=== PATIENT | male | born 1960 | race Caucasian/White ===

== ENCOUNTER 2016-11-05 18:53 | Emergency (ER) | payer MEDICARE ==
[~2016-11-05] VITALS: Ht 165.1 cm; Wt 73.4 kg
[~2016-11-05 18:53] MED LIST: CEPH-460 PO; METH40TA PO
[2016-11-05 18:58] VITALS: BP 145/90; PULSE 112; RESP 18; TEMP 99.7; O2SAT 100
[2016-11-05] MEDS ORDERED: METH40TA PO (19:14)
[2016-11-05] MEDS ORDERED: ADDE30TA PO (19:14)
[2016-11-05 19:15] VITALS: BP 145/84; PULSE 107; RESP 18; TEMP 98.7; O2SAT 98
[2016-11-05] MEDS ORDERED: SODIUM CHLOR 0.9% 1000 ML INJ 1,000 ML IV ONE ×2 (19:27)
[2016-11-05] MEDS ORDERED: SODIUM CHLOR 0.9% 1000 ML INJ 400 ML IV ONE (19:27)
[2016-11-05] MEDS ORDERED: ONDANSETRON HCL 4 MG/2 ML VIAL IV ONE (19:30)
--- NOTE | 2016-11-05 19:42 | PD ---
HPI . Cold and flu symptoms Chief Complaint: Cold / Flu Symptoms Time Seen by Provider: 19:11 Travel History International Travel<30 days: No Contact w/Intl Traveler<30days: No Traveled to known affect area: No History of Present Illness HPI The patient presents with multiple complaints. But it seems that his main issue is cold and flu-type symptoms. He reports the onset of symptoms 11 days ago. He reports myalgias, chills, shortness of breath, rhinorrhea, cough, diarrhea, dry heaves and urgency, dribbling and foul odor of his urine. He reports no appetite. He states that he has not eaten in 11 days. He states that he has insomnia. He goes on to say that he suffers from medicine his fingers and his feet. He states that he has mesh in his abdomen which was not placed appropriately. He states that he has a skin rash. PFSH Past Medical History Hx Anticoagulant Therapy: Yes (in the pst) ADHD: Yes Anxiety: Yes Cancer: No Cardiovascular Problems: No Chemotherapy: No Cerebrovascular Accident: No Diabetes: Yes Patient Takes Glucophage: No Diminished Hearing: No Deep Vein Thrombosis: Yes (RIGHT LEG, ) Genitourinary: No Immune Disorder: No Implanted Vascular Access Dvce: No Musculoskeletal: No Neurologic: Yes Psychiatric: Yes Reproductive: No Respiratory: No Immunizations Current: No (unknown) Past Surgical History Abdominal Surgery: Yes (gallbladder removed, "mesh insertion" "liver rewired into three pieces") Appendectomy: Yes Cholecystectomy: Yes Oral Surgery: Yes (teeth extraction) Other Surgery: Yes (RECTUS ABD MUSCLE REPAIR; SCREW REMOVED FROM LIVER) Social History Alcohol Use: No Tobacco Use: Yes (1PPD) Substance Use: No ("WAS ON MORPHINE/OXYCONTIN FOR MANY YEARS AFTER R ANKLE REPAIR") Allergies-Medications (Allergen,Severity, Reaction): Coded Allergies: Aspirin (Verified Allergy, Severe, Rash, 11/05/16) Tramadol (Verified Allergy, Severe, Rash, 11/05/16) Reported Meds & Prescriptions Reported Meds & Active Scripts Active Reported Adderall (Amphetamine-Dextroamphetamine) 30 Mg Tab 30 Mg PO BID Avoid late evening doses. Space doses at least 4 to 6 hours if more than once/day dosing. Review of Systems Except as stated in HPI: all other systems reviewed are Neg General / Constitutional: Positive: Fever, Chills HENT: Positive: Rhinorrhea Respiratory: Positive: Cough, Shortness of Breath Gastrointestinal: Positive: Nausea, Diarrhea, Loss of Appetite Genitourinary: Positive: Urgency, Dribbling Neurologic: Positive: Paresthesia Physical Exam Narrative GENERAL: This is a thin man who does not appear to be in any acute distress. SKIN: Warm and dry. He has some scattered scabbed lesions on his upper back and his right zuniga. HEAD: Atraumatic. Normocephalic. EYES: Pupils equal and round. Extraocular movements are intact. ENT: No nasal bleeding or discharge. Mucous membranes pink but dry. NECK: Trachea midline. Neck is supple. CARDIOVASCULAR: Regular rate and rhythm. He has a sinus tachycardia at about 110. Heart sounds are normal. RESPIRATORY: No accessory muscle use. Lungs have good air movement with occasional coarse expiratory wheeze. GASTROINTESTINAL: Abdomen soft, non-tender, nondistended. MUSCULOSKELETAL: No obvious deformities. No edema. NEUROLOGICAL: Awake and alert. No obvious cranial nerve deficits. Motor grossly within normal limits. Normal speech. PSYCHIATRIC: He becomes intermittently angry when asked the same question more than once. The patient reports that he is here tonight is his landlord told him that he had to seek medical care at the landlord was going to a [place] Act against him. I suspect that he has an underlying psychiatric issue. Data Data Last Documented VS Vital Signs Date Time Temp Pulse Resp B/P Pulse Ox O2 Delivery O2 Flow Rate FiO2 11/05/16 20:29 77 16 138/74 98 Room Air 11/05/16 19:15 98.7 Orders Complete Blood Count With Diff (11/05/16 19:27) Comprehensive Metabolic Panel (11/05/16 19:27) Lactic Acid Sepsis Protocol (11/05/16 19:27) Urinalysis - C+S If Indicated (11/05/16 19:27) Blood Culture (11/05/16 19:27) Chest, Single Ap (11/05/16 19:27) Blood Glucose (11/05/16 19:27) Ecg Monitoring (11/05/16 19:27) Iv Access Insert/Monitor (11/05/16 19:27) Cath For Specimen (11/05/16 19:27) Oximetry (11/05/16 19:27) Oxygen Administration (11/05/16 19:27) Ondansetron Inj (Zofran Inj) (11/05/16 19:30) Ct Abd/Pel W Iv Contrast(Rout) (11/05/16 19:27) Sodium Chlor 0.9% 1000 Ml Inj (Ns 1000 M (11/05/16 19:27) Sodium Chlor 0.9% 1000 Ml Inj (Ns 1000 M (11/05/16 19:27) Sodium Chlor 0.9% 1000 Ml Inj (Ns 1000 M (11/05/16 19:27) Iohexol 350 Inj (Omnipaque 350 Inj) (11/05/16 20:17) Bladder Scan PRN (11/05/16 20:44) Labs Laboratory Tests Test 11/05/16 11/05/16 19:40 21:13 White Blood Count 10.1 TH/MM3 Red Blood Count 5.21 MIL/MM3 Hemoglobin 15.0 GM/DL Hematocrit 44.4 % Mean Corpuscular Volume 85.2 FL Mean Corpuscular Hemoglobin 28.8 PG Mean Corpuscular Hemoglobin 33.8 % Concent Red Cell Distribution Width 12.7 % Platelet Count 301 TH/MM3 Mean Platelet Volume 7.7 FL Neutrophils (%) (Auto) 65.8 % Lymphocytes (%) (Auto) 27.2 % Monocytes (%) (Auto) 5.1 % Eosinophils (%) (Auto) 1.5 % Basophils (%) (Auto) 0.4 % Neutrophils # (Auto) 6.6 TH/MM3 Lymphocytes # (Auto) 2.8 TH/MM3 Monocytes # (Auto) 0.5 TH/MM3 Eosinophils # (Auto) 0.2 TH/MM3 Basophils # (Auto) 0.0 TH/MM3 CBC Comment DIFF FINAL Differential Comment Sodium Level 139 MEQ/L Potassium Level 3.6 MEQ/L Chloride Level 105 MEQ/L Carbon Dioxide Level 19.5 MEQ/L Anion Gap 15 MEQ/L Blood Urea Nitrogen 13 MG/DL Creatinine 1.20 MG/DL Estimat Glomerular Filtration 62 ML/MIN Rate Random Glucose 301 MG/DL Lactic Acid Level 2.1 mmol/L Calcium Level 8.8 MG/DL Total Bilirubin 0.7 MG/DL Aspartate Amino Transf 11 U/L (AST/SGOT) Alanine Aminotransferase 33 U/L (ALT/SGPT) Alkaline Phosphatase 130 U/L Total Protein 8.2 GM/DL Albumin 4.0 GM/DL Urine Collection Type CATH Urine Color YELLOW Urine Turbidity CLEAR Urine pH 5.5 Urine Specific [place] GREATER THAN 1.035 Urine Protein 30 mg/dL Urine Glucose (UA) 1000 OR GREATER mg/dL Urine Ketones 15 mg/dL Urine Occult Blood NEG Urine Nitrite NEG Urine Bilirubin NEG Urine Leukocyte Esterase NEG Urine WBC 0-2 /hpf Urine Hyaline Casts 0-2 /lpf Microscopic Urinalysis Comment CULT NOT INDICATED Urine Collection Time 2112 [facility] Medical Decision Making Medical Screen Exam Complete: Yes Emergency Medical Condition: Yes Medical Record Reviewed: Yes (records were reviewed specifically to look for history. He did have surgery some 10 years ago for an incisional hernia in the left flank area. It was not in his abdomen.) Differential Diagnosis Differential diagnosis includes but is not limited to influenza, upper respiratory infection, bronchitis, pneumonia, sepsis, UTI, urinary retention Narrative Course Patient presents for the evaluation of several things including cold and flulike symptoms, urinary issues and poor appetite. Clinically, he looks dehydrated. I have ordered a septic workup. We will do a catheter urine and drainage bladder. In the meantime, he will be given 3 L of IV fluid. CBC & BMP Diagram 11/05/16 19:40 Lactic acid is 2.1, total bilirubin 0.7, AST 11, ALT 33 and alkaline phosphatase 130. The patient refused urinary catheter. He has not yet produced a urine. UA is negative for infection. Bladder scan showed 0 residual urine. Last Impressions Chest X-Ray 11/05/[id number] Signed Impressions: Service Date/Time: Saturday, November 05, 2016 20:07 - CONCLUSION: No acute disease. Gerardo Rees MD Abdomen/Pelvis CT 11/05/161926 Signed Impressions: Service Date/Time: Saturday, November 05, 2016 20:01 - CONCLUSION: Heterogeneous texture to the liver which may represent increased fat content. Status post cholecystectomy. No evidence of acute process. Gerardo Rees MD I really haven't found anything acutely wrong with this patient except for hyperglycemia. It looks like he has previously been on metformin for diabetes. I will give him a prescription for same. Diagnosis Primary Impression: Hyperglycemia Scripts Metformin 500 Mg [id number] Mg PO BIDPC #60 TAB Ref 0 With meals Prov:Clara Alvarado MD 11/05/16 Disposition: DISCHARGE HOME Condition: Stable Clara Alvarado MD Nov 05, 2016 19:42
[2016-11-05 19:44] VITALS: O2SAT 99
[2016-11-05 19:59] LABS: AUTOMATED NEUTROPHIL # 6.6 TH/MM3 (1.8-7.7); BASOPHIL % 0.4 % (0.0-2.0); EOSINOPHIL # 0.2 TH/MM3 (0-0.4); EOSINOPHIL % 1.5 % (0.0-4.0); HEMATOCRIT 44.4 % (39.0-51.0); HEMO FLAGS DIFF FINAL; LYMPH % 27.2 % (9.0-44.0); LYMPHOCYTE # 2.8 TH/MM3 (1.0-4.8); MEAN CELL VOLUME 85.2 FL (80.0-100.0); MEAN CORPUSCULAR HEMOGLOBIN 28.8 PG (27.0-34.0); MEAN CORPUSCULAR HGB CONC 33.8 % (32.0-36.0); MONO % 5.1 % (0.0-8.0); NEUT % 65.8 % (16.0-70.0); PLATELET COUNT 301 TH/MM3 (150-450); RED BLOOD COUNT 5.21 MIL/MM3 (4.50-5.90); RED CELL DISTRIBUTION WIDTH 12.7 % (11.6-17.2); WHITE BLOOD COUNT 10.1 TH/MM3 (4.0-11.0)
[2016-11-05 20:12] LABS: CHLORIDE 105 MEQ/L (98-107); POTASSIUM 3.6 MEQ/L (3.5-5.1); SODIUM (NA) 139 MEQ/L (136-145)
[2016-11-05 20:16] LABS: ANION GAP 15 MEQ/L (5-15); BICARBONATE 19.5 MEQ/L (21.0-32.0); BLOOD UREA NITROGEN 13 MG/DL (7-18)
[2016-11-05] MEDS ORDERED: IOHEXOL 350 MG/ML 10 ML VIAL (for RAD DIAG) IV ONE (20:17)
[2016-11-05 20:19] LABS: ALT (GPT) 33 U/L (12-78); AST (GOT) 11 U/L (15-37); GLOMERULAR FILTRATION RATE 62 ML/MIN (>89)
[2016-11-05 20:20] LABS: TOTAL BILIRUBIN ADULT 0.7 MG/DL (0.2-1.0)
[2016-11-05 20:22] LABS: ALKALINE PHOSPHATASE 130 U/L (45-117)
[2016-11-05 20:29] VITALS: BP 138/74; PULSE 77; RESP 16; O2SAT 98
--- NOTE | 2016-11-05 20:37 | RADHPO ---
EXAM DATE/TIME: 11/05/2016 20:01 [facility] COMPARISON: No previous studies available for comparison. INDICATIONS : Bilateral abdominal pain. Difficulty urinating. IV CONTRAST: 75 cc Omnipaque 350 (iohexol) IV ORAL CONTRAST: No oral contrast ingested. RADIATION DOSE: 11.19 CTDIvol (mGy) MEDICAL HISTORY : Diabetes mellitus type 2. Deep venous thrombosis. SURGICAL HISTORY : Appendectomy. Cholecystectomy.Liver ENCOUNTER: Initial ACUITY: 1 day PAIN SCALE: 6/10 LOCATION: Bilateral Abdomen. TECHNIQUE: Volumetric scanning of the abdomen and pelvis was performed. Using automated exposure control and ad justment of the mA and/or kV according to patient size, radiation dose was kept as low as reasonably achievable to obtain optimal diagnostic quality images. FINDINGS: LOWER LUNGS: The visualized lower lungs are clear. LIVER: Liver has a heterogeneous texture. There are no suspicious lesions. There is no evidence of ductal di latation. Gallbladder has been removed. SPLEEN: Normal size without lesion. PANCREAS: Within normal limits. KIDNEYS: Normal in size and shape. There is no mass, stone or hydronephrosis. ADRENAL GLANDS: Within normal limits. VASCULAR: There is no aortic aneurysm. BOWEL/MESENTERY: The stomach, small bowel, and colon demonstrate no acute abnormality. There is no free intraperitone al air or fluid. ABDOMINAL WALL: Within normal limits. RETROPERITONEUM: There is no lymphadenopathy. BLADDER: No wall thickening or mass. REPRODUCTIVE: Within normal limits. INGUINAL: There is no lymphadenopathy or hernia. MUSCULOSKELETAL: Within normal limits for patient age. CONCLUSION: Heterogeneous texture to the liver which may represent increased fat content. Status post cholecystectomy. No evidence of acute process. Gerardo Rees MD on November 05, 2016 at 20:29 Board Certified Radiologist. This report was verified electronically.
--- NOTE | 2016-11-05 20:39 | RADHPO ---
EXAM DATE/TIME: 11/05/2016 20:07 [facility] COMPARISON: CHEST SINGLE AP, September 27, 2015, 5:36. INDICATIONS : Cough. Shortness of breath for over two weeks. MEDICAL HISTORY : Diabetes mellitus type II. SURGICAL HISTORY : None. ENCOUNTER: Initial ACUITY: 2 weeks PAIN SCORE: 5/10 LOCATION: Bilateral chest FINDINGS: A single view of the chest demonstrates the lungs to be symmetrically aerated without evidence of mas s, infiltrate or effusion. The cardiomediastinal contours are unremarkable. Osseous structures are intact. CONCLUSION: No acute disease. Gerardo Rees MD on November 05, 2016 at 20:37 Board Certified Radiologist. This report was verified electronically.
[2016-11-05 21:22] LABS: BLOOD, URINE NEG (NEG); KETONE, URINE 15 mg/dL (NEG); NITRITE,URINE NEG (NEG); PH, URINE 5.5 (5.0-8.5)
[2016-11-05 21:31] LABS: GLUCOSE,URINE 1000 OR GREATER mg/dL (NEG)
[2016-11-05 21:34] LABS: COMMENT (UR) CULT NOT INDICATED; CULTURE IF INDICATED CULT NOT INDICATED; HYALINE CAST, URINE 0-2 /lpf (RARE); METHOD OF COLLECTION CATH; URINE COLOR YELLOW (YELLW/STRAW); WBC, URINE 0-2 /hpf (0-5)
[2016-11-05] MEDS ORDERED: METF500T PO (21:44)
[2016-11-05 21:54] LABS: LACTIC ACID GHOST NOT REPORTABLE
[2016-11-05 21:58] VITALS: BP 137/68; TEMP 98.9
== END 2016-11-05 22:00 | disposition home or self-care (01) ==
LOC: PHED 18:53
DX: E11.65 Type 2 diabetes mellitus with hyperglycemia (principal); M79.1 Myalgia; R19.7 Diarrhea, unspecified; R39.15 Urgency of urination; R21 Rash and other nonspecific skin eruption; F17.210 Nicotine dependence, cigarettes, uncomplicated; Z79.01 Long term (current) use of anticoagulants
CPT/HCPCS: 71010; 74177; 80053; 81001; 83605; 85025; 87040; 96361; 96374; 99284; J2405; J7030; Q9967

== ENCOUNTER 2017-09-14 09:59 | Inpatient (IN) | payer MEDICARE ==
[~2017-09-14] VITALS: Ht 162.6 cm; Wt 75.6 kg
[~2017-09-14 09:59] MED LIST changes: +ADDE30TA PO; -CEPH-460 PO; +METF500T PO; -METH40TA PO
[2017-09-14 10:01] VITALS: BP 145/75; PULSE 100; RESP 18; TEMP 98.6; O2SAT 96
--- NOTE | 2017-09-14 10:06 | PD ---
HPI Chief Complaint: Skin Problem Time Seen by Provider: 10:05 Travel History International Travel<30 days: No Contact w/Intl Traveler<30days: No Traveled to known affect area: No History of Present Illness HPI 57-year-old male came to the emergency room with history of left thumb infection that as per him has been going on since past 1 week. Patient is not sure what caused it. He does not remember any injury or penetration of the skin with anything. Today he noticed that it was swollen double the size of his thumb. It was hurting. He decided to come to the emergency room. Patient is a diabetic and takes metformin to control his sugar. He did not check his sugar today but the past few times the readings have been more than 300. Bedside blood sugar here was 522. Patient describes the pain as a throbbing which is worse on bending the thumb or touching it. He has been getting some chills. PFSH Past Medical History Narrative Medical List of his past medical, surgical, social and family history is reviewed from the nursing note. Hx Anticoagulant Therapy: Yes (in the pst) ADHD: Yes Anxiety: Yes Cancer: No Cardiovascular Problems: No Chemotherapy: No Cerebrovascular Accident: No Diabetes: Yes Diminished Hearing: No Deep Vein Thrombosis: Yes (RIGHT LEG, ) Genitourinary: No Immune Disorder: No Implanted Vascular Access Dvce: No Musculoskeletal: No Neurologic: Yes Psychiatric: Yes Reproductive: No Respiratory: No Immunizations Current: No (unknown) Past Surgical History Abdominal Surgery: Yes (gallbladder removed, "mesh insertion" "liver rewired into three pieces") Appendectomy: Yes Cholecystectomy: Yes Oral Surgery: Yes (teeth extraction) Other Surgery: Yes (RECTUS ABD MUSCLE REPAIR; SCREW REMOVED FROM LIVER) Social History Alcohol Use: No Tobacco Use: Yes (1PPD) Substance Use: No ("WAS ON MORPHINE/OXYCONTIN FOR MANY YEARS AFTER R ANKLE REPAIR") Allergies-Medications (Allergen,Severity, Reaction): Coded Allergies: aspirin (Unverified Allergy, Severe, Rash, 04/22/17) tramadol (Unverified Allergy, Severe, Rash, 04/22/17) Comments GENERAL: Awake, alert, moderate distress SKIN: Focused skin assessment warm/dry. Left thumb has a large pustular bullous lesion on the dorsal and the radial aspect of the thumb with a clear demarcation at the CMC joint. The skin beyond it is erythematous and tender to touch. The thumb looks dusky in color. HEAD: Atraumatic. Normocephalic. EYES: Pupils equal and round. No scleral icterus. No injection or drainage. ENT: No nasal bleeding or discharge. Mucous membranes pink and moist. NECK: Trachea midline. No JVD. CARDIOVASCULAR: Regular rate and rhythm. No murmur appreciated. RESPIRATORY: No accessory muscle use. Clear to auscultation. Breath sounds equal bilaterally. GASTROINTESTINAL: Abdomen soft, non-tender, nondistended. Hepatic and splenic margins not palpable. MUSCULOSKELETAL: No obvious deformities. No clubbing. No cyanosis. No edema. NEUROLOGICAL: Awake and alert. No obvious cranial nerve deficits. Motor grossly within normal limits. Normal speech. PSYCHIATRIC: Appropriate mood and affect; insight and judgment normal. Reported Meds & Prescriptions Reported Meds & Active Scripts Active Reported Adderall (Amphetamine-Dextroamphetamine) 30 Mg Tab 30 Mg PO BID Avoid late evening doses. Space doses at least 4 to 6 hours if more than once/day dosing. Narrative Medication List of his home medications reviewed from the nursing note. Review of Systems Except as stated in HPI: all other systems reviewed are Neg Physical Exam Narrative GENERAL: Awake, alert, moderate distress SKIN: Focused skin assessment warm/dry. The left thumb is double in size due to a large bolus lesion that seems to be filled with purulent material starting from the dorsum of the thumb all the way to the radial aspect and the pulp of the thumb. There is a clear demarcation just proximal to the CMC joint. The skin proximal to the demarcation is erythematous and tender to touch. The thumb itself looks dusky in color. HEAD: Atraumatic. Normocephalic. EYES: Pupils equal and round. No scleral icterus. No injection or drainage. ENT: No nasal bleeding or discharge. Mucous membranes pink and moist. NECK: Trachea midline. No JVD. CARDIOVASCULAR: Regular rate and rhythm. No murmur appreciated. RESPIRATORY: No accessory muscle use. Clear to auscultation. Breath sounds equal bilaterally. GASTROINTESTINAL: Abdomen soft, non-tender, nondistended. Hepatic and splenic margins not palpable. MUSCULOSKELETAL: No obvious deformities. No clubbing. No cyanosis. No edema. NEUROLOGICAL: Awake and alert. No obvious cranial nerve deficits. Motor grossly within normal limits. Normal speech. PSYCHIATRIC: Appropriate mood and affect; insight and judgment normal. Data Data Last Documented VS Vital Signs Date Time Temp Pulse Resp B/P (MAP) Pulse Ox O2 Delivery O2 Flow Rate FiO2 09/14/17 10:43 90 18 144/68 (93) 98 Room Air 09/14/17 10:01 98.6 Orders Orders Basic Metabolic Panel (Bmp) (09/14/17 10:16) Complete Blood Count With Diff (09/14/17 10:16) Blood Culture (09/14/17 10:16) Wound Culture And Gram Stain (09/14/17 10:16) Iv Access Insert/Monitor (09/14/17 10:16) Vancomycin Inj (Vancomycin Inj) (09/14/17 10:30) Beta Hydroxybutyrate (Acetone) (09/14/17 10:32) Blood Gas Venous (Vbg) (09/14/17 10:32) Blood Glucose (09/14/17 10:32) Blood Glucose (09/14/17 11:32) Sodium Chlor 0.9% 1000 Ml Inj (Ns 1000 M (09/14/17 10:32) Insulin Human Regular Inj (Novolin R Inj (09/14/17 10:45) Acetamin-Hydrocod 325-5 Mg (Rotan 5-325 (09/14/17 11:00) Finger ([id number]) (09/14/17 ) Lidocaine 1% Inj (Xylocaine 1% Inj) (09/14/17 11:30) Dextroamphet-Ampheta (Adderall) (09/14/17 21:00) Metformin (Glucophage) (09/14/17 18:00) Admit To Inpatient (09/14/17 ) Code Status (09/14/17 12:27) Vital Signs (Adult) Q4H (09/14/17 12:27) Activity Oob With Assistance (09/14/17 12:27) Diet 1800 Ada Cons Carb (09/14/17 Lunch) Sodium Chloride 0.9% Flush (Ns Flush) (09/14/17 12:30) Sodium Chloride 0.9% Flush (Ns Flush) (09/14/17 21:00) Acetaminophen (Tylenol) (09/14/17 12:30) Ondansetron Inj (Zofran Inj) (09/14/17 12:30) Temazepam (Restoril) (09/14/17 21:00) Comprehensive Metabolic Panel (09/15/17 06:00) Complete Blood Count With Diff (09/15/17 06:00) Case Management Consult (09/14/17 12:27) Enoxaparin Inj (Lovenox Inj) (09/14/17 13:00) Acetaminophen (Tylenol) (09/14/17 12:30) Acetamin-Hydrocod 325-5 Mg (Rotan 5-325 (09/14/17 12:30) Naloxone Inj (Narcan Inj) (09/14/17 12:30) Docusate Sodium-Senna (Cheryl-Colace) (09/14/17 12:30) Inpatient Certification (09/14/17 ) Vancomycin Consult Pharmacy (Vancomycin (09/14/17 12:30) Vancomycin Inj (Vancomycin Inj) (09/15/17 09:00) Clindamycin (Cleocin) (09/14/17 18:00) Lactobacillus Acidophilus (Lactinex) (09/14/17 21:00) Bedside Glucose SAGAR.CSUGAR (09/14/17 12:27) Blood Glucose Goal (Criteria) (09/14/17 12:27) Hypoglycemia 70 Mg/Dl Or < (09/14/17 12:27) Notify Dr: Other (09/14/17 12:27) Dextrose 50% In Shakira (Vial) Inj (D50w (Vi (09/14/17 12:30) Glucagon Inj (Glucagon Inj) (09/14/17 12:30) Insulin Aspart Supplemtl Scale (Novolog (09/14/17 17:00) Hemoglobin (Hgb) A1c (09/15/17 06:00) Lipid Profile (09/15/17 06:00) Admit Order (Ed Use Only) (09/14/17 12:30) Albuterol-Ipratropium Neb (Duoneb Neb) (09/14/17 12:30) Labs Laboratory Tests Test 09/14/17 10:26 09/14/17 11:00 White Blood Count 13.8 TH/MM3 Red Blood Count 4.57 MIL/MM3 Hemoglobin 13.5 GM/DL Hematocrit 40.8 % Mean Corpuscular Volume 89.3 FL Mean Corpuscular Hemoglobin 29.5 PG Mean Corpuscular Hemoglobin Concent 33.0 % Red Cell Distribution Width 13.7 % Platelet Count 284 TH/MM3 Mean Platelet Volume 7.6 FL Neutrophils (%) (Auto) 74.3 % Lymphocytes (%) (Auto) 12.2 % Monocytes (%) (Auto) 10.1 % Eosinophils (%) (Auto) 3.0 % Basophils (%) (Auto) 0.4 % Neutrophils # (Auto) 10.2 TH/MM3 Lymphocytes # (Auto) 1.7 TH/MM3 Monocytes # (Auto) 1.4 TH/MM3 Eosinophils # (Auto) 0.4 TH/MM3 Basophils # (Auto) 0.1 TH/MM3 CBC Comment DIFF FINAL Differential Comment Blood Urea Nitrogen 28 MG/DL Creatinine 1.27 MG/DL Random Glucose 559 MG/DL Calcium Level 8.9 MG/DL Sodium Level 133 MEQ/L Potassium Level 4.9 MEQ/L Chloride Level 98 MEQ/L Carbon Dioxide Level 27.8 MEQ/L Anion Gap 7 MEQ/L Estimat Glomerular Filtration Rate 58 ML/MIN B-Hydroxybutyrate 0.18 MMOL/L Blood Gas Puncture Site LINE Blood Gas Patient Temperature 98.6 Venous Blood pH 7.42 Venous Blood Partial Pressure CO2 43 mmHg Venous Blood Partial Pressure O2 53 mmHg Venous Blood HCO3 28 mmol/L Venous Blood Oxygen Saturation 86 % Venous Blood Oxygen Content 15.9 Vol % Venous Blood Base Excess 3.5 mmol/L Blood Gas Inspired Oxygen 21 % [facility] Medical Decision Making Medical Screen Exam Complete: Yes Emergency Medical Condition: Yes Medical Record Reviewed: Yes Differential Diagnosis Abscess, cellulitis, osteomyelitis, DKA Narrative Course 11:53 AM patient was given 2 L of IV fluid bolus, IV vancomycin 1 g and pain medication. Blood test results suggest of leukocytosis with left shift and hyperglycemia. VBG did not show any acidosis. His beta hydroxybutyrate is negative. Her given the condition of the thumb and hyperglycemia I would prefer to admit this patient to get few more doses of IV antibiotic. The abscess was drained. Please refer to my procedure note. Patient tolerated the procedure well. Awaiting for the hospitalist to call back. Procedures Procedure Narrative I&D of an abscess: The left thumb was cleaned with Betadine 3. During the Betadine scrubbing the skin opened up and started to drain copious amount of purulent material. Culture was obtained. A small incision was made with the scalpel to widen the opening and more purulent material came out. The skin was debrided with scissors and cut around the margins. Underneath dermis appears to be macerated and raw. This was cleaned further with Betadine and normal saline. Nonadhesive dressing is being applied by the nurse. Patient tolerated the procedure well. EKG Prior to Arrival: No Diagnosis Primary Impression: Abscess of finger, left Additional Impressions: Hyperglycemia Leukocytosis Qualified Codes: D72.828 - Other elevated white blood cell count Admitting Information Admitting Physician Requests: Admit Scripts Insulin Human NPH Inj (Novolin N Inj) 1,000 Unit/10 Ml Vial 10 UNITS SQ AC BREAKFAST for Blood Sugar Management, #10 ML 0 Refills Prov: Edgar Samayoa MD 09/16/17 Metformin (Glucophage) 850 Mg Tab 850 MG PO BIDPC for Blood Sugar Management, #60 TAB Prov: Edgar Samayoa MD 09/16/17 Clindamycin (Cleocin) 150 Mg Cap 150 MG PO Q6HR for Mgmt Bacterial Infection, #28 CAP Prov: Edgar Samayoa MD 09/15/17 Parenteral Therapy Supplies (Sharpsafety Sharps Contai) 1 Mis Mis EA .ROUTE DIRECTED, #1 0 Refills Prov: Edgar Samayoa MD 09/15/17 Glucocom Test Strips (Glucocom Test Strips) 1 Aubrie Aubrie EA .ROUTE DIRECTED for Blood Sugar Management, #1 Prov: Edgar Samayoa MD 09/15/17 Lancets (Lancets) 1 Mis Mis EA .ROUTE DIRECTED for Blood Sugar Management, #1 0 Refills Prov: Edgar Samayoa MD 09/15/17 Insulin Syringe/U-100/31G X 5/16" 1 ml (Insulin Syringe/U-100/31G X 5/16" 1 ml) 31 Gauge X 5/16" Mis EA .ROUTE DIRECTED for Blood Sugar Management, #1 0 Refills Prov: Edgar Samayoa MD 09/15/17 Blood Glucose Monitoring W/Device (Glucocom Blood Glucose Mo W/Device) 1 Kit Kit KIT .ROUTE DIRECTED for Blood Sugar Management, #1 0 Refills Prov: Edgar Samayoa MD 09/15/17 Lisinopril (Lisinopril) 10 Mg Tab 10 MG PO DAILY for Blood Pressure Management, #30 TAB Prov: Edgar Samayoa MD 09/15/17 Octavio Talley MD Sep 14, 2017 10:06
[2017-09-14] MEDS ORDERED: VANCOMYCIN INJ 1,000 MG in SODIUM CHLOR 0.9% 250 ML INJ 250 ML IV ONE (10:30)
[2017-09-14] MEDS ORDERED: SODIUM CHLOR 0.9% 1000 ML INJ 1,000 ML IV ONE (10:32)
[2017-09-14 10:42] LABS: AUTOMATED NEUTROPHIL # 10.2 TH/MM3 (1.8-7.7); BASOPHIL # 0.1 TH/MM3 (0-0.2); BASOPHIL % 0.4 % (0.0-2.0); EOSINOPHIL # 0.4 TH/MM3 (0-0.4); HEMATOCRIT 40.8 % (39.0-51.0); HEMOGLOBIN 13.5 GM/DL (13.0-17.0); LYMPH % 12.2 % (9.0-44.0); LYMPHOCYTE # 1.7 TH/MM3 (1.0-4.8); MEAN CELL VOLUME 89.3 FL (80.0-100.0); MEAN CORPUSCULAR HEMOGLOBIN 29.5 PG (27.0-34.0); MEAN PLATELET VOLUME 7.6 FL (7.0-11.0); MONO % 10.1 % (0.0-8.0); MONOCYTE # 1.4 TH/MM3 (0-0.9); NEUT % 74.3 % (16.0-70.0); PLATELET COUNT 284 TH/MM3 (150-450); RED BLOOD COUNT 4.57 MIL/MM3 (4.50-5.90); RED CELL DISTRIBUTION WIDTH 13.7 % (11.6-17.2); WHITE BLOOD COUNT 13.8 TH/MM3 (4.0-11.0)
[2017-09-14 10:43] VITALS: BP 144/68; PULSE 90; RESP 18; O2SAT 98
[2017-09-14] MEDS ORDERED: INSULIN HUMAN REGULAR 1,000 UNITS/10 ML VIAL IV PUSH ONE (10:45)
[2017-09-14] MEDS ORDERED: LIDOCAINE HCL 1% 50 ML VIAL INFIL ONE (11:00)
[2017-09-14] MEDS ORDERED: ACETAMINOPHEN/HYDROcodone 325 MG/5 MG TAB PO ONE (11:00)
[2017-09-14 11:10] LABS: BICARBONATE 27.8 MEQ/L (21.0-32.0); CALCIUM 8.9 MG/DL (8.5-10.1); CREATININE 1.27 MG/DL (0.60-1.30)
--- NOTE | 2017-09-14 11:28 | RADRPT ---
EXAM DATE/TIME: 09/14/2017 11:06 [facility] COMPARISON: No previous studies available for comparison. INDICATIONS : Pain and swelling left thumb, denies injury MEDICAL HISTORY : Diabetes mellitus type II. SURGICAL HISTORY : None. ENCOUNTER: Initial ACUITY: 1 week PAIN SCORE: 10/10 LOCATION: Left Thumb FINDINGS: There is significant soft tissue swelling involving the left thumb. There is no acute fracture or dis location. No significant arthritic changes are noted. No radiopaque foreign body is noted. CONCLUSION: 1. Significant soft tissue swelling involving the left thumb. 2. No acute fracture, dislocation or significant arthritic changes noted. Ervin Kwon MD on September 14, 2017 at 11:24 Board Certified Radiologist. This report was verified electronically.
[2017-09-14] MEDS ORDERED: LIDOCAINE HCL 1% 20 ML VIAL INFIL ONE (11:30)
[2017-09-14] MEDS ORDERED: RESP: ALBUTEROL 2.5 MG/IPRATROPIUM 0.5 MG NEB (PRN) NEB (12:30)
[2017-09-14] MEDS ORDERED: DOCUSATE SODIUM 50 MG/SENNA 8.6 MG TAB PO PRN (12:30)
[2017-09-14] MEDS ORDERED: Vancomycin Consult Pharmacy 1 EA OTHER SCH (12:30)
[2017-09-14] MEDS ORDERED: DEXTROSE 50% IN WATER 50 ML VIAL(D50) IV PUSH PRN (12:30)
[2017-09-14] MEDS ORDERED: SODIUM CHLORIDE 0.9% FLUSH 10 ML FLUSH IV FLUSH PRN (12:30)
[2017-09-14] MEDS ORDERED: NALOXONE HCL 0.4 MG/ML AMP IV PUSH PRN (12:30)
[2017-09-14] MEDS ORDERED: GLUCAGON 1 MG/ML VIAL OTHER PRN (12:30)
[2017-09-14] MEDS ORDERED: ACETAMINOPHEN 325 MG TAB PO PRN ×2 (12:30)
[2017-09-14] MEDS ORDERED: ONDANSETRON HCL 4 MG/2 ML VIAL IVP PRN (12:30)
--- NOTE | 2017-09-14 12:55 | HHI.HP ---
[facility] Service [facility] Primary Care Physician Kiya Mathew D.O. Admission Diagnosis left thumb cellulitis, hyperglycemia Diagnoses: (1) Abscess of finger, left (2) Diabetes type 2, uncontrolled Chief Complaint: Painful infected left thumb Travel History International Travel<30 Days: No Contact w/Intl Traveler <30 Da: No Traveled to Known Affected Are: No Sepsis Criteria SIRS Criteria (2 or more): Heart rate over 90, WBC > 37586, < 4000 or > 10% bands Sepsis Criteria (SIRS+source): Infect source susp/known Severe Sepsis (+one): Lactate >2 Criteria Outcome: Meets severe sepsis criteria History of Present Illness 57-year-old male with a history of diabetes type 2 presented to the ED for evaluation of ten-days history of left thumb swollen and painful. Patient states, on 09/03/17 he first noticed this left him to be tender at the tip and described it as a ingrown nail. It progressively turned blue the following days and became more swollen. Patient denies any febrile episode. Secondary to the pain which was excruciating at 10/10 in intensity patient took ibuprofen. On Miranda, patient has worsening swollen and states it progresses down to the jon, however denies any purulent drainage. Patient is unaware of any insect bites or trauma to his hand or finger. He also described the pain to be excruciating to the point where he could not he tight his shoes or open any doorknob. In ED, patient has elevated white blood cell count as well as lactic acid. He underwent bedside I&D. Review of Systems Except as stated in HPI: all other systems reviewed are Neg Past Family Social History Past Medical History COPD Diabetes type 2 Past Surgical History Appendectomy Cholecystectomy Right ankle surgery Incisional hernia repair 06/20/06 Vasectomy Reported Medications Adderal Metformin 500 mg twice a day Allergies: Coded Allergies: aspirin (Unverified Allergy, Severe, Rash, 04/22/17) tramadol (Unverified Allergy, Severe, Rash, 04/22/17) Family History Mother had hypertension, diabetes type 2 Father from some form of complication of Heart tumor in his 40s Social History Alcohol Use: No Tobacco Use: Yes (1PPD) Substance Use: No ("WAS ON MORPHINE/OXYCONTIN FOR MANY YEARS AFTER R ANKLE REPAIR") Physical Exam Vital Signs Vital Signs Date Time Temp Pulse Resp B/P (MAP) Pulse Ox O2 Delivery O2 Flow Rate FiO2 09/14/17 10:43 90 18 144/68 (93) 98 Room Air 09/14/17 10:01 98.6 100 18 145/75 (98) 96 Physical Exam GENERAL: This is a well-nourished, well-developed patient, in no apparent distress. SKIN: No rashes, ecchymoses or lesions. Cool and dry. Dressing over left thumb HEAD: Atraumatic. Normocephalic. No temporal or scalp tenderness. EYES: Pupils equal round and reactive. Extraocular motions intact. No scleral icterus. No injection or drainage. ENT: Nose without bleeding, purulent drainage or septal hematoma. Throat without erythema, tonsillar hypertrophy or exudate. Uvula midline. Airway patent. NECK: Trachea midline. No JVD or lymphadenopathy. Supple, nontender, no meningeal signs. CARDIOVASCULAR: Regular rate and rhythm without murmurs, gallops, or rubs. RESPIRATORY: Clear to auscultation. Breath sounds equal bilaterally. No wheezes , rales, or rhonchi. GASTROINTESTINAL: Abdomen soft, non-tender, nondistended. No hepato-splenomegaly , or palpable masses. No guarding. MUSCULOSKELETAL: Extremities without clubbing, cyanosis, or edema. No joint tenderness, effusion, or edema noted. No calf tenderness. Negative Homans sign bilaterally. NEUROLOGICAL: Awake and alert. Cranial nerves II through XII intact. Motor and sensory grossly within normal limits. Five out of 5 muscle strength in all muscle groups. Normal speech. Laboratory Laboratory Tests Test 09/14/17 10:26 09/14/17 11:00 White Blood Count 13.8 Red Blood Count 4.57 Hemoglobin 13.5 Hematocrit 40.8 Mean Corpuscular Volume 89.3 Mean Corpuscular Hemoglobin 29.5 Mean Corpuscular Hemoglobin Concent 33.0 Red Cell Distribution Width 13.7 Platelet Count 284 Mean Platelet Volume 7.6 Neutrophils (%) (Auto) 74.3 Lymphocytes (%) (Auto) 12.2 Monocytes (%) (Auto) 10.1 Eosinophils (%) (Auto) 3.0 Basophils (%) (Auto) 0.4 Neutrophils # (Auto) 10.2 Lymphocytes # (Auto) 1.7 Monocytes # (Auto) 1.4 Eosinophils # (Auto) 0.4 Basophils # (Auto) 0.1 CBC Comment DIFF FINAL Differential Comment Blood Urea Nitrogen 28 Creatinine 1.27 Random Glucose 559 Calcium Level 8.9 Sodium Level 133 Potassium Level 4.9 Chloride Level 98 Carbon Dioxide Level 27.8 Anion Gap 7 Estimat Glomerular Filtration Rate 58 B-Hydroxybutyrate 0.18 Blood Gas Puncture Site LINE Blood Gas Patient Temperature 98.6 Venous Blood pH 7.42 Venous Blood Partial Pressure CO2 43 Venous Blood Partial Pressure O2 53 Venous Blood HCO3 28 Venous Blood Oxygen Saturation 86 Venous Blood Oxygen Content 15.9 Venous Blood Base Excess 3.5 Blood Gas Inspired Oxygen 21 Date/Time Source Procedure Growth Status 09/14/17 10:30 Blood Peripheral Aerobic Blood Culture Pending Received 09/14/17 10:30 Blood Peripheral Anaerobic Blood Culture Pending Received 09/14/17 11:35 Wound Finger Gram Stain Pending Received 09/14/17 11:35 Wound Finger Wound Culture Pending Received Result Diagram: 09/14/17 1026 09/14/17 1026 Imaging Last Impressions Finger X-Ray 09/14/17 0000 Signed Impressions: Service Date/Time: Thursday, September 14, 2017 11:06 - CONCLUSION: 1. Significant soft tissue swelling involving the left thumb. 2. No acute fracture, dislocation or significant arthritic changes noted. MD Alvaro De Jesus VTE Risk Assessment Caprini VTE Risk Assessment: No/Low Risk (score <= 1) Caprini Risk Assessment Model Point Value = 1 Point Value = 2 Point Value = 3 Point Value = 5 Age 41-60 Minor surgery BMI > 25 kg/m2 Swollen legs Varicose veins or History of unexplained or recurrent spontaneous Oral contraceptives or hormone replacement Sepsis (< 1 month) Serious lung disease, including pneumonia (< 1 month) Abnormal pulmonary function Acute myocardial infarction Congestive heart failure (< 1 month) History of inflammatory bowel disease Medical patient at bed rest Age 61-74 Arthroscopic surgery Major open surgery (> 45 min) Laparoscopic surgery (> 45 min) Malignancy Confined to bed (> 72 hours) Immobilizing plaster cast Central venous access Age >= 75 History of VTE Family history of VTE Factor V Leiden Prothrombin [id number] Lupus anticoagulant Anticardiolipin antibodies Elevated serum homocysteine Heparin-induced thrombocytopenia Other congenital or acquired thrombophilia Stroke (< 1 month) Elective arthroplasty Hip, pelvis, or leg fracture Acute spinal cord injury (< 1 month) Prophylaxis Regimen Total Risk Factor Score Risk Level Prophylaxis Regimen 0-1 Low Early ambulation 2 Moderate Order ONE of the following: *Sequential Compression Device (SCD) *Heparin 5000 units SQ BID 3-4 Higher Order ONE of the following medications: *Heparin 5000 units SQ TID *Enoxaparin/Lovenox 40 mg SQ daily (WT < 150 kg, CrCl > 30 mL/min) *Enoxaparin/Lovenox 30 mg SQ daily (WT < 150 kg, CrCl > 10-29 mL/min) *Enoxaparin/Lovenox 30 mg SQ BID (WT < 150 kg, CrCl > 30 mL/min) AND/OR *Sequential Compression Device (SCD) 5 or more Highest Order ONE of the following medications: *Heparin 5000 units SQ TID (Preferred with Epidurals) *Enoxaparin/Lovenox 40 mg SQ daily (WT < 150 kg, CrCl > 30 mL/min) *Enoxaparin/Lovenox 30 mg SQ daily (WT < 150 kg, CrCl > 10-29 mL/min) *Enoxaparin/Lovenox 30 mg SQ BID (WT < 150 kg, CrCl > 30 mL/min) AND *Sequential Compression Device (SCD) Assessment and Plan Problem List: (1) Sepsis ICD Code: A41.9 - Sepsis, unspecified organism (2) Abscess of finger, left ICD Code: L02.512 - Cutaneous abscess of left hand Status: Acute (3) Diabetes type 2, uncontrolled ICD Code: E11.65 - Type 2 diabetes mellitus with hyperglycemia (4) Leukocytosis ICD Code: D72.829 - Elevated white blood cell count, unspecified Status: Acute Assessment and Plan 57 year-old man with Severe sepsis: Heart rate over 90, WBC > 76468, < 4000 or > 10% bands; Lactate >2, Infect source susp/[id number] thumb abscess); status post vancomycin IV 1, continue with vancomycin and start clindamycin pending culture report Abscess left thumb Finger x-ray noted and review by me with finding of significantly swollen involving left thumb Status post I&D in ED pending culture report Treated with vancomycin in ED 1 Continue vancomycin IV and by mouth clindamycin pending final culture report Pain management accordingly Leukocytosis From above infectious process Continue to monitor Diabetes type 2, uncontrolled Check hemoglobin A1c and lipid profile Start metformin 875 mg twice a day and NovoLog 70/30 BID along with ISS Hypertension Start lisinopril 10 mg daily Tobacco abuse Tobacco cessation counseling provided Start Nicotine patch COPD No exacerbation DuoNeb when necessary DVT prophylaxis: Lovenox Code Status Full code Discussed Condition With Patient, ED physician Physician Certification 2 Midnight Certification Type: Admission for Inpatient Services Order for Inpatient Services The services are ordered in accordance with Medicare regulations or non- Medicare payer requirements, as applicable. In the case of services not specified as inpatient-only, they are appropriately provided as inpatient services in accordance with the 2-midnight benchmark. Estimated LOS (days): 2 days is the estimated time the patient will need to remain in the hospital, assuming treatment plan goals are met and no additional complications. Post-Hospital Plan: Not yet determined Problem Qualifiers (1) Leukocytosis: Qualified Codes: D72.828 - Other elevated white blood cell count Loc Johnson MD Sep 14, 2017 12:55
[2017-09-14 14:01] VITALS: BP 146/71; PULSE 79; RESP 16; O2SAT 96
[2017-09-14 16:22] VITALS: BP 116/56; PULSE 88; RESP 20; TEMP 98; O2SAT 96
[2017-09-14] MEDS: INSULIN ASPART SUPPLEMENTAL SCALE SQ SCH ×2 (16:47→21:22)
[2017-09-14] MEDS: ENOXAPARIN SODIUM 40 MG/0.4 ML SYRINGE SQ SCH (17:00)
[2017-09-14] MEDS: CLINDAMYCIN 150 MG CAP PO SCH (17:45)
[2017-09-14] MEDS: metFORMIN HCL 850 MG TAB PO SCH (18:00)
[2017-09-14] MEDS ORDERED: metFORMIN HCL 500 MG TAB PO SCH (18:00)
[2017-09-14 20:47] VITALS: BP 127/73; PULSE 87; RESP 18; TEMP 98.2; O2SAT 95
[2017-09-14 21:00] VITALS: BP 124/73; PULSE 87; RESP 18; TEMP 98.2; O2SAT 95
[2017-09-14] MEDS: DEXTROAMPHETAMINE/AMPHETAMINE 30 MG TAB PO SCH (21:00)
[2017-09-14] MEDS: ACETAMINOPHEN/HYDROcodone 325 MG/5 MG TAB PO PRN (22:13)
[2017-09-14] MEDS: SODIUM CHLORIDE 0.9% FLUSH 10 ML FLUSH IV FLUSH SCH (22:14)
[2017-09-14] MEDS: TEMAZEPAM 15 MG CAP PO PRN (22:15)
[2017-09-14] MEDS: VANCOMYCIN INJ 1,500 MG in SODIUM CHLORID 0.9% 500 ML INJ 500 ML IV SCH (22:15)
[2017-09-14] MEDS: LACTOBACILLUS ACIDOPHILUS TAB PO SCH (22:15)
[2017-09-15] MEDS: CLINDAMYCIN 150 MG CAP PO SCH ×4 (01:19→17:15)
[2017-09-15 01:39] VITALS: BP 139/85; PULSE 85; RESP 18; TEMP 97.4; O2SAT 98
[2017-09-15 01:43] VITALS: BP 117/61; PULSE 68; RESP 18; TEMP 97.8; O2SAT 96
[2017-09-15] MEDS: ACETAMINOPHEN/HYDROcodone 325 MG/5 MG TAB PO PRN (02:00)
[2017-09-15 07:50] LABS: AUTOMATED NEUTROPHIL # 3.1 TH/MM3 (1.8-7.7); BASOPHIL % 0.8 % (0.0-2.0); EOSINOPHIL # 0.5 TH/MM3 (0-0.4); EOSINOPHIL % 8.6 % (0.0-4.0); HEMATOCRIT 34.1 % (39.0-51.0); HEMOGLOBIN 11.4 GM/DL (13.0-17.0); LYMPH % 28.1 % (9.0-44.0); LYMPHOCYTE # 1.7 TH/MM3 (1.0-4.8); MEAN CELL VOLUME 88.3 FL (80.0-100.0); MEAN CORPUSCULAR HEMOGLOBIN 29.4 PG (27.0-34.0); MEAN CORPUSCULAR HGB CONC 33.3 % (32.0-36.0); MEAN PLATELET VOLUME 7.6 FL (7.0-11.0); MONO % 11.1 % (0.0-8.0); MONOCYTE # 0.7 TH/MM3 (0-0.9); NEUT % 51.4 % (16.0-70.0); PLATELET COUNT 220 TH/MM3 (150-450); RED BLOOD COUNT 3.86 MIL/MM3 (4.50-5.90); RED CELL DISTRIBUTION WIDTH 13.7 % (11.6-17.2)
[2017-09-15 08:16] LABS: ALBUMIN 2.8 GM/DL (3.4-5.0); ALKALINE PHOSPHATASE 119 U/L (45-117); ALT (GPT) 28 U/L (12-78); AST (GOT) 40 U/L (15-37); BICARBONATE 26.5 MEQ/L (21.0-32.0); BLOOD UREA NITROGEN 24 MG/DL (7-18); CALCIUM 8.3 MG/DL (8.5-10.1); CHLORIDE 106 MEQ/L (98-107); CHOLESTEROL 128 MG/DL (120-200); CHOLESTEROL/ HDL RATIO 4.62 RATIO; CREATININE 0.88 MG/DL (0.60-1.30); GLOMERULAR FILTRATION RATE 89 ML/MIN (>89); GLUCOSE,RANDOM 186 MG/DL (74-106); HDL CHOLESTEROL 27.7 MG/DL (40.0-60.0); LDL CHOLESTEROL 84 MG/DL (0-99); SODIUM (NA) 138 MEQ/L (136-145); TOTAL BILIRUBIN ADULT 0.4 MG/DL (0.2-1.0); TOTAL PROTEIN 6.3 GM/DL (6.4-8.2); TRIGLYCERIDES 80 MG/DL (42-150)
[2017-09-15 08:35] VITALS: BP 117/60; PULSE 72; RESP 17; TEMP 98; O2SAT 98
[2017-09-15] MEDS ORDERED: VANCOMYCIN INJ 1,250 MG in SODIUM CHLOR 0.9% 250 ML INJ 250 ML IV SCH (09:00)
[2017-09-15 09:45] LABS: HEMOGLOBIN A1C 12.2 % (4.3-6.0)
[2017-09-15] MEDS: LACTOBACILLUS ACIDOPHILUS TAB PO SCH ×2 (09:54→21:36)
[2017-09-15] MEDS: DEXTROAMPHETAMINE/AMPHETAMINE 30 MG TAB PO SCH ×2 (09:55→21:35)
[2017-09-15] MEDS: INSULIN ASPART SUPPLEMENTAL SCALE SQ SCH ×4 (09:55→21:36)
[2017-09-15] MEDS: LISINOPRIL 10 MG TAB PO SCH (09:55)
[2017-09-15] MEDS: SODIUM CHLORIDE 0.9% FLUSH 10 ML FLUSH IV FLUSH SCH ×2 (09:55→21:35)
[2017-09-15] MEDS: metFORMIN HCL 850 MG TAB PO SCH ×2 (09:55→17:15)
[2017-09-15] MEDS: NICOTINE 21 MG/24 HR PATCH T-DERMAL SCH (09:56)
[2017-09-15] MEDS: REMOVE OLD PATCH T-DERMAL SCH (09:56)
[2017-09-15] MEDS ORDERED: METH40TA PO (10:28)
[2017-09-15] MEDS: ENOXAPARIN SODIUM 40 MG/0.4 ML SYRINGE SQ SCH (12:36)
--- NOTE | 2017-09-15 12:44 | HHI.PR ---
Subjective Remarks F/u left thumb abscess. Denies pain. takes methadone 50 mg QD dw RN Objective Vitals Vital Signs Date Time Temp Pulse Resp B/P (MAP) Pulse Ox O2 Delivery O2 Flow Rate FiO2 09/15/17 08:35 98.0 72 17 117/60 (79) 98 09/15/17 01:43 97.8 68 18 117/61 (79) 96 09/14/17 21:00 98.2 87 18 124/73 (90) 95 09/14/17 20:47 98.2 87 18 127/73 (91) 95 09/14/17 16:22 98.0 88 20 116/56 (76) 96 09/14/17 14:01 79 16 146/71 (96) 96 Room Air Result Diagram: 09/15/17 0525 09/15/17 0525 Imaging Last Impressions Finger X-Ray 09/14/17 0000 Signed Impressions: Service Date/Time: Thursday, September 14, 2017 11:06 - CONCLUSION: 1. Significant soft tissue swelling involving the left thumb. 2. No acute fracture, dislocation or significant arthritic changes noted. Ervin Kwon MD Objective Remarks GENERAL: This is a well-nourished, well-developed patient, in no apparent distress. SKIN: No rashes, ecchymoses or lesions. Cool and dry. Dressing over left thumb which was removed and exposed denuded left thumb no limitation of ROM HEAD: Atraumatic. Normocephalic. No temporal or scalp tenderness. EYES: Pupils equal round and reactive. Extraocular motions intact. No scleral icterus. No injection or drainage. ENT: Nose without bleeding, purulent drainage or septal hematoma. Throat without erythema, tonsillar hypertrophy or exudate. Uvula midline. Airway patent. NECK: Trachea midline. No JVD or lymphadenopathy. Supple, nontender, no meningeal signs. CARDIOVASCULAR: Regular rate and rhythm without murmurs, gallops, or rubs. RESPIRATORY: Clear to auscultation. Breath sounds equal bilaterally. No wheezes , rales, or rhonchi. GASTROINTESTINAL: Abdomen soft, non-tender, nondistended. No guarding. MUSCULOSKELETAL: Extremities without clubbing, cyanosis, or edema. No joint tenderness, effusion, or edema noted. No calf tenderness. Negative Homans sign bilaterally. NEUROLOGICAL: Awake and alert. Cranial nerves II through XII intact. Motor and sensory grossly within normal limits. Five out of 5 muscle strength in all muscle groups. Normal speech. Procedures bedside I and D A/P Problem List: (1) Abscess of finger, left ICD Code: L02.512 - Cutaneous abscess of left hand Status: Acute (2) Diabetes type 2, uncontrolled ICD Code: E11.65 - Type 2 diabetes mellitus with hyperglycemia Assessment and Plan 57 year-old man with Severe sepsis: Abscess left thumb Finger x-ray noted and review by me with finding of significantly swollen involving left thumb Status post I&D in ED pending culture report Treated with vancomycin in ED 1 Continue vancomycin IV and by mouth clindamycin pending final culture report Pain management accordingly counselled regarding narcotic wound care. Consult Hand surgery Leukocytosis From above infectious process Continue to monitor Diabetes type 2, uncontrolled LDL 87. A1c 12.2. Continue metformin 875 mg twice a day and start NPH 70/30 BID 10 units along with ISS Hypertension Ct lisinopril 10 mg daily Tobacco abuse Tobacco cessation counseling provided Ct Nicotine patch COPD No exacerbation DuoNeb when necessary DVT prophylaxis: Lovenox Discharge Planning Not Ready for discharge needs IV abx pending cx and control of diabetes start insulin. Edgar Samayoa MD Sep 15, 2017 12:44
[2017-09-15] MEDS ORDERED: METHADONE HCL 10 MG TAB PO SCH (12:45)
[2017-09-15 12:55] VITALS: BP 171/77; PULSE 85; RESP 18; TEMP 97.4; O2SAT 100
[2017-09-15] MEDS: VANCOMYCIN INJ 1,500 MG in SODIUM CHLORID 0.9% 500 ML INJ 500 ML IV SCH (15:30)
[2017-09-15] MEDS ORDERED: LISI10TA3 PO (15:49)
[2017-09-15] MEDS ORDERED: INSU1MIS15 (15:49)
[2017-09-15] MEDS ORDERED: LANCETS1 MI1 (15:49)
[2017-09-15] MEDS ORDERED: BIOM30MI (15:49)
[2017-09-15] MEDS ORDERED: GLUCKIT15 (15:49)
[2017-09-15] MEDS ORDERED: GLUCTES12 (15:49)
--- NOTE | 2017-09-15 15:49 | HHI.DCPOC ---
Discharge Care Plan Diagnosis: (1) Abscess of finger, left Your Health Problems Are: Exercise Tolerance Goals to Promote Your Health * To prevent worsening of your condition and complications * To maintain your health at the optimal level Directions to Meet Your Goals Take your medications as prescribed Follow your dietary instruction Follow activity as directed Keep your appointments as scheduled Take your immunizations and boosters as scheduled If your symptoms worsen call your PCP, if no PCP go to Urgent Care Center or Emergency Room Smoking is Dangerous to Your Health. Avoid second hand smoke Call the 24-hour hour crisis hotline for domestic abuse at Edgar Samayoa MD Sep 15, 2017 15:49
--- NOTE | 2017-09-15 15:50 | HHI.FF ---
Face to Face Verification Diagnosis: (1) Abscess of finger, left (2) Diabetes type 2, uncontrolled Home Health Nursing Order: Medical education Signs/symptoms of disease process Diabetic education Medication education-adverse effect Wound care and dressing changes Nursing assessment with vital signs I have seen patient Dangelo Holcomb on 09/15/17. My clinical findings support the need for the requested home health care services because: Med compliance is questionable I certify that my clinical findings support that this patient is homebound because: Need for psychosocial assistance Edgar Samayoa MD Sep 15, 2017 15:50
[2017-09-15] MEDS: MUPIROCIN 2% OINT 22 GM TUBE TOPICAL SCH (15:57)
[2017-09-15] MEDS: INSULIN HUMAN NPH/R 70/30 1,000 UNITS/10 ML VIAL SQ SCH (17:16)
--- NOTE | 2017-09-15 17:56 | MB ---
cc: IVETH URRUTIA M.D. DATE OF CONSULTATION 09/15/2017 REQUESTING PHYSICIAN The patient is being seen at request of Dr. Loc Johnson. REASON FOR CONSULTATION Left thumb abscess. HISTORY OF PRESENT ILLNESS The patient is a 57-year-old male who was admitted to the emergency room last evening due to an abscess of the dorsal aspect of his left palm. The patient noted that he had been sitting in a chair on his porch and he feels that is where it came from. The patient came to the emergency room where the abscess was drained and debrided and dressed. Upon admission his white count was 13.8 with 74.3% neutrophils, with an absolute number of 10,200. Today his white count was 6.0 with no shift and his absolute number of neutrophils was 3100. The patient's blood glucose on admission apparently was 559 and this morning was 186. The microbiology so far is not conclusive. The patient reports that after the drainage, including this morning, the patient has no additional pain, but when he did come in it was to 06/17. The patient notes he does not need any pain medicine. Consultation is requested regarding evaluation and treatment of this patient. Past medical history, ALLERGIES INCLUDE ASPIRIN AND TRAMADOL. MEDICATIONS Are listed on the chart. PAST MEDICAL HISTORY His history is positive for: 1. COPD. 2. Type 2 diabetes. PAST SURGICAL HISTORY Includes: 1. Appendectomy. 2. Cholecystectomy. 3. Right ankle surgery. 4. Incisional hernia repair 06/20/2006. 5. Vasectomy. FAMILY HISTORY Significant for diabetes and hypertension. SOCIAL HISTORY The patient denies alcohol use. He does smoke and he indicates that he was on morphine and OxyContin for many years after an ankle repair. PHYSICAL EXAMINATION GENERAL: On examination the patient is sitting comfortably in bed. HEENT: His extraocular muscles are intact. Pupils are equal, round and reactive to light. His mouth is clear. NECK: Supple without masses. LUNGS: Clear. CARDIOVASCULAR: Regular rate and rhythm. EXTREMITIES: Examination of the upper extremities reveals a mildly swollen left thumb. He has adequate range of motion. There is loss of part of the epidermis and possibly part of the dermis on the dorsal aspect of the thumb left side measuring approximately 4 cm x 2 cm in greatest dimension. There is no drainage. There is beefy base which is red. IMAGING The patients x-ray which was obtained on 09/14/2017 of the left hand shows the soft tissue swelling but no evidence of bony involvement. IMPRESSION The patient has adequately drained abscess of the left thumb which appears to be relatively superficial. PLAN The patient will be cleared for discharge on oral antibiotics. He was given some wound care instructions. The patient is to follow up next week in my office as indicated. Iveth Urrutia MD LHB/KK /3:18 PM /5:24 PM
[2017-09-15 20:00] VITALS: BP 137/72; PULSE 94; RESP 20; TEMP 98.3; O2SAT 95
[2017-09-15] MEDS ORDERED: CLIN150 PO (20:03)
[2017-09-15] MEDS: TEMAZEPAM 15 MG CAP PO PRN (21:35)
[2017-09-16] VITALS: BP 144/78; PULSE 95; RESP 20; TEMP 97.9; O2SAT 95
[2017-09-16] MEDS: CLINDAMYCIN 150 MG CAP PO SCH ×3 (00:25→12:26)
[2017-09-16] MEDS: ACETAMINOPHEN/HYDROcodone 325 MG/5 MG TAB PO PRN ×2 (00:27→05:58)
[2017-09-16 04:00] VITALS: BP 128/71; PULSE 80; RESP 20; TEMP 97.8; O2SAT 100
[2017-09-16 08:00] VITALS: BP 151/84; PULSE 88; RESP 17; TEMP 98.9; O2SAT 100
[2017-09-16] MEDS: INSULIN HUMAN NPH/R 70/30 1,000 UNITS/10 ML VIAL SQ SCH (08:32)
[2017-09-16] MEDS: metFORMIN HCL 850 MG TAB PO SCH (08:33)
[2017-09-16] MEDS: LACTOBACILLUS ACIDOPHILUS TAB PO SCH (08:33)
[2017-09-16] MEDS: LISINOPRIL 10 MG TAB PO SCH (08:33)
[2017-09-16] MEDS: INSULIN ASPART SUPPLEMENTAL SCALE SQ SCH ×2 (08:33→12:26)
[2017-09-16] MEDS: SODIUM CHLORIDE 0.9% FLUSH 10 ML FLUSH IV FLUSH SCH (08:34)
[2017-09-16] MEDS: NICOTINE 21 MG/24 HR PATCH T-DERMAL SCH (08:34)
[2017-09-16] MEDS: REMOVE OLD PATCH T-DERMAL SCH (08:34)
[2017-09-16] MEDS: DEXTROAMPHETAMINE/AMPHETAMINE 30 MG TAB PO SCH (08:34)
[2017-09-16] MEDS: MUPIROCIN 2% OINT 22 GM TUBE TOPICAL SCH (08:34)
[2017-09-16] MEDS ORDERED: METHADONE HCL 10 MG TAB PO SCH (09:00)
[2017-09-16] MEDS ORDERED: NOVO7030P2 SQ (09:27)
[2017-09-16] MEDS ORDERED: METF850 PO (11:15)
[2017-09-16] MEDS ORDERED: LANTUS2P SQ (11:16)
--- NOTE | 2017-09-16 11:19 | HHI.PR ---
Objective Vitals Vital Signs Date Time Temp Pulse Resp B/P (MAP) Pulse Ox O2 Delivery O2 Flow Rate FiO2 09/16/17 08:00 98.9 88 17 151/84 (106) 100 09/16/17 07:12 18 09/16/17 04:00 97.8 80 20 128/71 (90) 100 09/16/17 00:00 97.9 95 20 144/78 (100) 95 09/15/17 20:17 18 09/15/17 20:00 98.3 94 20 137/72 (93) 95 09/15/17 12:55 97.4 85 18 171/77 (108) 100 I/O 09/15/17 09/15/17 09/15/17 09/16/17 09/16/17 09/16/17 06:59 14:59 22:59 06:59 14:59 22:59 Intake Total 740 ml Output Total 300 ml 550 ml Balance 440 ml -550 ml Intake Oral 240 ml IV Total 500 ml Output Urine Total 300 ml 550 ml # Voids 1 # Bowel Movements 0 Result Diagram: 09/15/17 0525 09/15/17 0525 Objective Remarks GENERAL: This is a well-nourished, well-developed patient, in no apparent distress. SKIN: No rashes, ecchymoses or lesions. Cool and dry. Dressing over left thumb which was removed and exposed denuded left thumb no limitation of ROM HEAD: Atraumatic. Normocephalic. No temporal or scalp tenderness. EYES: Pupils equal round and reactive. Extraocular motions intact. No scleral icterus. No injection or drainage. ENT: Nose without bleeding, purulent drainage or septal hematoma. Throat without erythema, tonsillar hypertrophy or exudate. Uvula midline. Airway patent. NECK: Trachea midline. No JVD or lymphadenopathy. Supple, nontender, no meningeal signs. CARDIOVASCULAR: Regular rate and rhythm without murmurs, gallops, or rubs. RESPIRATORY: Clear to auscultation. Breath sounds equal bilaterally. No wheezes , rales, or rhonchi. GASTROINTESTINAL: Abdomen soft, non-tender, nondistended. No guarding. MUSCULOSKELETAL: Extremities without clubbing, cyanosis, or edema. No joint tenderness, effusion, or edema noted. No calf tenderness. Negative Homans sign bilaterally. NEUROLOGICAL: Awake and alert. Cranial nerves II through XII intact. Motor and sensory grossly within normal limits. Five out of 5 muscle strength in all muscle groups. Normal speech. Procedures bedside I and D A/P Problem List: (1) Abscess of finger, left ICD Code: L02.512 - Cutaneous abscess of left hand Status: Acute (2) Diabetes type 2, uncontrolled ICD Code: E11.65 - Type 2 diabetes mellitus with hyperglycemia Assessment and Plan 57 year-old man with Severe sepsis: Abscess left thumb Finger x-ray noted and review by me with finding of significantly swollen involving left thumb Status post I&D in ED pending culture report Treated with vancomycin in ED 1 Continue vancomycin IV and by mouth clindamycin pending final culture report Pain management accordingly counselled regarding narcotic wound care. Consult Hand surgery Leukocytosis From above infectious process Continue to monitor Diabetes type 2, uncontrolled LDL 87. A1c 12.2. Continue metformin 875 mg twice a day and start NPH 70/30 BID 10 units along with ISS Hypertension Ct lisinopril 10 mg daily Tobacco abuse Tobacco cessation counseling provided Ct Nicotine patch COPD No exacerbation DuoNeb when necessary DVT prophylaxis: Lovenox Discharge Planning Not Ready for discharge needs IV abx pending cx and control of diabetes start insulin. Edgar Samayoa MD Sep 16, 2017 11:18
[2017-09-16] MEDS ORDERED: NOVONP2 SQ (12:09)
--- NOTE | 2017-09-16 17:00 | HHI.DS ---
Discharge Summary Admission Date Sep 14, 2017 at 12:31 Discharge Date: Sep 16, 2017 Admitting Diagnosis left thumb cellulitis, hyperglycemia (1) Abscess of finger, left ICD Code: L02.512 - Cutaneous abscess of left hand Diagnosis: Principal Status: Acute (2) Diabetes type 2, uncontrolled ICD Code: E11.65 - Type 2 diabetes mellitus with hyperglycemia Diagnosis: Principal Procedures bedside I and D Brief History - From Admission 57-year-old male with a history of diabetes type 2 presented to the ED for evaluation of ten-days history of left thumb swollen and painful. Patient states, on 09/03/17 he first noticed this left him to be tender at the tip and described it as a ingrown nail. It progressively turned blue the following days and became more swollen. Patient denies any febrile episode. Secondary to the pain which was excruciating at 10/10 in intensity patient took ibuprofen. On Miranda, patient has worsening swollen and states it progresses down to the jon, however denies any purulent drainage. Patient is unaware of any insect bites or trauma to his hand or finger. He also described the pain to be excruciating to the point where he could not he tight his shoes or open any doorknob. In ED, patient has elevated white blood cell count as well as lactic acid. He underwent bedside I&D. CBC/BMP: 09/15/17 0525 09/15/17 0525 Significant Findings Laboratory Tests Test 09/14/17 10:26 09/14/17 11:00 09/15/17 05:25 White Blood Count 13.8 TH/MM3 (4.0-11.0) Neutrophils (%) (Auto) 74.3 % (16.0-70.0) Monocytes (%) (Auto) 10.1 % (0.0-8.0) 11.1 % (0.0-8.0) Neutrophils # (Auto) 10.2 TH/MM3 (1.8-7.7) Monocytes # (Auto) 1.4 TH/MM3 (0-0.9) Blood Urea Nitrogen 28 MG/DL (7-18) 24 MG/DL (7-18) Random Glucose 559 MG/DL (74-106) 186 MG/DL (74-106) Sodium Level 133 MEQ/L (136-145) Estimat Glomerular Filtration Rate 58 ML/MIN (>89) Venous Blood pH 7.42 (7.360-7.400) Venous Blood Partial Pressure CO2 43 mmHg (44-48) Venous Blood Partial Pressure O2 53 mmHg (35-40) Venous Blood HCO3 28 mmol/L (22-26) Venous Blood Oxygen Saturation 86 % (70-76) Venous Blood Base Excess 3.5 mmol/L (-2-2) Red Blood Count 3.86 MIL/MM3 (4.50-5.90) Hemoglobin 11.4 GM/DL (13.0-17.0) Hematocrit 34.1 % (39.0-51.0) Eosinophils (%) (Auto) 8.6 % (0.0-4.0) Eosinophils # (Auto) 0.5 TH/MM3 (0-0.4) Total Protein 6.3 GM/DL (6.4-8.2) Albumin 2.8 GM/DL (3.4-5.0) Calcium Level 8.3 MG/DL (8.5-10.1) Alkaline Phosphatase 119 U/L (45-117) Aspartate Amino Transf (AST/SGOT) 40 U/L (15-37) Hemoglobin A1c 12.2 % (4.3-6.0) HDL Cholesterol 27.7 MG/DL (40.0-60.0) Imaging Last Impressions Finger X-Ray 09/14/17 0000 Signed Impressions: Service Date/Time: Thursday, September 14, 2017 11:06 - CONCLUSION: 1. Significant soft tissue swelling involving the left thumb. 2. No acute fracture, dislocation or significant arthritic changes noted. Ervin Kwon MD PE at Discharge GENERAL: This is a well-nourished, well-developed patient, in no apparent distress. SKIN: No rashes, ecchymoses or lesions. Cool and dry. Dressing over left thumb which was removed and exposed denuded left thumb no limitation of ROM CARDIOVASCULAR: Regular rate and rhythm without murmurs, gallops, or rubs. RESPIRATORY: Clear to auscultation. Breath sounds equal bilaterally. No wheezes , rales, or rhonchi. GASTROINTESTINAL: Abdomen soft, non-tender, nondistended. No guarding. MUSCULOSKELETAL: Extremities without clubbing, cyanosis, or edema. No joint tenderness, effusion, or edema noted. No calf tenderness. Negative Homans sign bilaterally. NEUROLOGICAL: Awake and alert. Cranial nerves II through XII intact. Motor and sensory grossly within normal limits. Five out of 5 muscle strength in all muscle groups. Normal speech. Hospital Course 57 year-old man with Severe sepsis: Clinically resolved. Abscess left thumb Finger x-ray noted and review by me with finding of significantly swollen involving left thumb Status post I&D in ED Treated with vancomycin in ED 1 Blood for negative to date. Wound culture with normal carlito ruling out anaerobic organism. Discontinue IV vancomycin and continue by mouth clindamycin. Pain management accordingly counselled regarding narcotic wound care. Consult Hand surgery Leukocytosis From above infectious process Continue to monitor Diabetes type 2, uncontrolled LDL 87. A1c 12.2. Increase metformin 875 mg twice a day and start NPH 70/30 daily 10 units along with ISS. Diabetic education Hypertension Ct lisinopril 10 mg daily Tobacco abuse Tobacco cessation counseling provided Ct Nicotine patch COPD No exacerbation DuoNeb when necessary DVT prophylaxis: Lovenox Pt Condition on Discharge: Stable Discharge Disposition: Disch w/ Home Health Serv Discharge Time: > 30 minutes Discharge Instructions DIET: Follow Instructions for: Diabetic Diet Activities you can perform: Regular-No Restrictions Activities to Avoid: Driving Follow up Referrals: Appointment for Follow Up - 1 Week with Tiana Burciaga MD Hand Surgery - 1 Week PCP Follow-up - 1 Week PCP Follow-up New Medications: Blood Glucose Monitoring W/Device (Glucocom Blood Glucose Mo W/Device) 1 Kit Kit KIT .ROUTE DIRECTED for Blood Sugar Management, #1 0 Refills Glucocom Test Strips (Glucocom Test Strips) 1 Aubrie Aubrie EA .ROUTE DIRECTED for Blood Sugar Management, #1 Insulin Human NPH Inj (Novolin N Inj) 1,000 Unit/10 Ml Vial 10 UNITS SQ AC BREAKFAST for Blood Sugar Management, #10 ML 0 Refills Insulin Syringe/U-100/31G X 5/16" 1 ml (Insulin Syringe/U-100/31G X 5/16" 1 ml) 31 Gauge X 5/16" Mis EA .ROUTE DIRECTED for Blood Sugar Management, #1 0 Refills Lancets (Lancets) 1 Mis Mis EA .ROUTE DIRECTED for Blood Sugar Management, #1 0 Refills Parenteral Therapy Supplies (Sharpsafety Sharps Contai) 1 Mis Mis EA .ROUTE DIRECTED, #1 0 Refills Clindamycin (Cleocin) 150 Mg Cap 150 MG PO Q6HR for Mgmt Bacterial Infection, #28 CAP Lisinopril (Lisinopril) 10 Mg Tab 10 MG PO DAILY for Blood Pressure Management, #30 TAB Metformin (Glucophage) 850 Mg Tab 850 MG PO BIDPC for Blood Sugar Management, #60 TAB Continued Medications: Amphetamine-Dextroamphetamine (Adderall) 30 Mg Tab 30 MG PO BID for Hyperactivity Control, #60 TAB 0 Refills Avoid late evening doses. Space doses at least 4 to 6 hours if more than once/day dosing. Methadone (Methadone) 40 Mg Tab 40 MG PO DAILY, TAB 0 Refills Edgar Samayoa MD Sep 16, 2017 17:00
[2017-09-17] MEDS ORDERED: PHARMACY ORDERED LAB ONE (02:45)
[2017-09-17] MEDS ORDERED: INSULIN DETEMIR 100 UNITS/ML VIAL SQ SCH (07:00)
== END 2017-09-16 13:42 | disposition home health service (06) | DRG 872 ==
LOC: NEPD 09:59 → NEDA 12:31 → N05A 14:09
PROVIDERS: ADMIT Internal Medicine; ATTEND Internal Medicine
PROC: 0H9GXZX Drainage of Left Hand Skin, External Approach, Diagnostic (ICD-10-PCS; principal; 2017-09-14)
DX: A41.9 Sepsis, unspecified organism (principal); E11.65 Type 2 diabetes mellitus with hyperglycemia; Z79.84 Long term (current) use of oral hypoglycemic drugs; I10 Essential (primary) hypertension; L02.512 Cutaneous abscess of left hand; R65.20 Severe sepsis without septic shock; L03.012 Cellulitis of left finger; J44.9 Chronic obstructive pulmonary disease, unspecified; F17.210 Nicotine dependence, cigarettes, uncomplicated
CPT/HCPCS: 10060; 73140; 80048; 80053; 80061; 82010; 82805; 82948; 83036; 85025; 86403; 87040; 87070; 87205; 96365; 96366; 96375; J1650; J1815; J3370; J7030; J7040; J7050

== ENCOUNTER 2017-10-08 13:51 | Emergency (ER) | payer MEDICARE ==
[~2017-10-08] VITALS: Ht 165.1 cm; Wt 71.5 kg
[~2017-10-08 13:51] MED LIST changes: +BIOM30MI; +CLIN150 PO; +GLUCKIT15; +GLUCTES12; +INSU1MIS15; +LANCETS1 MI1; +LISI10TA3 PO; -METF500T PO; +METF850 PO; +METH40TA PO; +NOVONP2 SQ
[2017-10-08 13:52] VITALS: BP 141/80; PULSE 107; RESP 18; TEMP 97.7; O2SAT 97
[2017-10-08 15:04] LABS: BASOPHIL # 0.1 TH/MM3 (0-0.2); BASOPHIL % 1.1 % (0.0-2.0); EOSINOPHIL # 0.1 TH/MM3 (0-0.4); EOSINOPHIL % 0.7 % (0.0-4.0); HEMATOCRIT 49.2 % (39.0-51.0); HEMOGLOBIN 16.5 GM/DL (13.0-17.0); LYMPHOCYTE # 2.3 TH/MM3 (1.0-4.8); MEAN CELL VOLUME 87.4 FL (80.0-100.0); MEAN CORPUSCULAR HEMOGLOBIN 29.2 PG (27.0-34.0); MEAN CORPUSCULAR HGB CONC 33.4 % (32.0-36.0); MONO % 6.7 % (0.0-8.0); MONOCYTE # 0.7 TH/MM3 (0-0.9); NEUT % 68.5 % (16.0-70.0); PLATELET COUNT 310 TH/MM3 (150-450); RED BLOOD COUNT 5.63 MIL/MM3 (4.50-5.90); RED CELL DISTRIBUTION WIDTH 14.2 % (11.6-17.2); WHITE BLOOD COUNT 10.2 TH/MM3 (4.0-11.0)
[2017-10-08 15:10] LABS: BILIRUBIN, URINE NEG (NEG); BLOOD, URINE NEG (NEG); GLUCOSE,URINE 1000 mg/dL (NEG); KETONE, URINE 40 mg/dL (NEG); MUCUS URINE FEW /lpf (OCC); NITRITE,URINE NEG (NEG); PH, URINE 5.5 (5.0-8.5); URINE COLOR YELLOW (YELLW/STRAW); URINE LEUKOCYTE ESTERASE NEG (NEG)
[2017-10-08 15:24] LABS: ALBUMIN 4.2 GM/DL (3.4-5.0); ALT (GPT) 29 U/L (12-78); AST (GOT) 9 U/L (15-37); BICARBONATE 23.7 MEQ/L (21.0-32.0); BLOOD UREA NITROGEN 17 MG/DL (7-18); CALCIUM 9.5 MG/DL (8.5-10.1); CHLORIDE 100 MEQ/L (98-107); CREATININE 1.15 MG/DL (0.60-1.30); GLOMERULAR FILTRATION RATE 65 ML/MIN (>89); GLUCOSE,RANDOM 368 MG/DL (74-106); LIPASE 140 U/L (73-393); SODIUM (NA) 136 MEQ/L (136-145)
[2017-10-08 15:25] LABS: ALKALINE PHOSPHATASE 173 U/L (45-117); TOTAL BILIRUBIN ADULT 0.7 MG/DL (0.2-1.0); TOTAL PROTEIN 8.7 GM/DL (6.4-8.2)
[2017-10-08 15:55] VITALS: BP 156/83; PULSE 79; RESP 18; O2SAT 99
[2017-10-08] MEDS ORDERED: INSULIN HUMAN REGULAR 1,000 UNITS/10 ML VIAL SQ ONE (16:30)
--- NOTE | 2017-10-08 17:24 | PD ---
HPI Chief Complaint: Medical Clearance Time Seen by Provider: 15:50 Travel History International Travel<30 days: No Contact w/Intl Traveler<30days: No Traveled to known affect area: No History of Present Illness HPI 57-year-old male presents to the emergency room for evaluation of generalized abdominal pain, nausea, vomiting, and diarrhea for the past 4-5 days. He denies any objective fevers. He does have a mesh placed over his entire abdomen at [facility]. It was placed because while he was working out his abdominal contents fell out. States he has had chronic pain since then but over the past 4 days it has worsened. He was referred to pain management by his doctor but the referral has not gone through. He is taking Suboxone. States he has not been able to get it for the past 4 days. He was also recently hospitalized for a thumb infection and took several days of antibiotics. PFSH Past Medical History Hx Anticoagulant Therapy: Yes (in the pst) ADHD: Yes Anxiety: No Depression: No Cancer: Yes (r eye tumor, removed) Cardiovascular Problems: No Chemotherapy: No Cerebrovascular Accident: No Diabetes: Yes Patient Takes Glucophage: Yes Diminished Hearing: No Deep Vein Thrombosis: Yes (RIGHT LEG) Gastrointestinal Disorders: Yes (SBO) Genitourinary: No Hypertension: Yes Immune Disorder: No Implanted Vascular Access Dvce: No Musculoskeletal: No Neurologic: No Psychiatric: No Reproductive: No Respiratory: No Immunizations Current: No (unknown) Past Surgical History Abdominal Surgery: Yes (gallbladder removed, "mesh insertion" "liver rewired into three pieces") Appendectomy: Yes Cholecystectomy: Yes Eye Surgery: Yes (right eye surgery from infection) Oral Surgery: Yes (teeth extraction) Other Surgery: Yes (RECTUS ABD MUSCLE REPAIR; SCREW REMOVED FROM LIVER) Social History Alcohol Use: No Tobacco Use: Yes (1PPD) Substance Use: No Allergies-Medications (Allergen,Severity, Reaction): Coded Allergies: aspirin (Verified Allergy, Severe, Rash, 09/24/17) tramadol (Verified Allergy, Severe, Rash, 09/24/17) Reported Meds & Prescriptions Reported Meds & Active Scripts Active Phenergan (Promethazine HCl) 25 Mg Tablet 25 Mg PO ONCE Novolin N Inj (Insulin Human NPH) 1,000 Unit/10 Ml Vial 10 Units SQ AC BREAKFAST Glucophage (Metformin HCl) 850 Mg Tab 850 Mg PO BIDPC Sharpsafety Sharps Contai (Parenteral Therapy Supplies) 1 Mis Mis Ea .ROUTE DIRECTED Glucocom Test Strips (Blood Glucose Test Strips) 1 Aubrie Aubrie Ea .ROUTE DIRECTED Lancets 1 Mis Mis Ea .ROUTE DIRECTED Insulin Syringe/U-100/31G X /16" 1 ml 31 Gauge X 5/16" Mis Ea .ROUTE DIRECTED Glucocom Blood Glucose Mo W/Device (Device) 1 Kit Kit Kit .ROUTE DIRECTED Lisinopril 10 Mg Tab 10 Mg PO DAILY Reported Methadone (Methadone HCl) 40 Mg Tab 40 Mg PO DAILY Adderall (Amphetamine-Dextroamphetamine) 30 Mg Tab 30 Mg PO BID Avoid late evening doses. Space doses at least 4 to 6 hours if more than once/day dosing. Review of Systems Except as stated in HPI: all other systems reviewed are Neg Physical Exam Narrative GENERAL: Well-nourished, well-developed male in no acute distress. Afebrile. Ambulatory. SKIN: Focused skin assessment warm/dry. HEAD: Normocephalic. EYES: No scleral icterus. No injection or drainage. NECK: Supple, trachea midline. No JVD or lymphadenopathy. CARDIOVASCULAR: Regular rate and rhythm without murmurs, gallops, or rubs. RESPIRATORY: Breath sounds equal bilaterally. No accessory muscle use. GASTROINTESTINAL: Abdomen soft, nondistended. Diffuse tenderness to palpation of the abdomen. Data Data Last Documented VS Vital Signs Date Time Temp Pulse Resp B/P (MAP) Pulse Ox O2 Delivery O2 Flow Rate FiO2 10/08/17 19:41 10/08/17 18:45 18 10/08/17 18:30 81 98 Room Air 10/08/17 13:52 97.7 Orders Orders Complete Blood Count With Diff (10/08/17 13:58) Comprehensive Metabolic Panel (10/08/17 13:58) Lipase (10/08/17 13:58) Urinalysis - C+S If Indicated (10/08/17 13:58) Insulin Human Regular Inj (Novolin R Inj (10/08/17 16:30) Insulin Human Regular Inj (Novolin R Inj (10/08/17 18:30) Morphine Inj (Morphine Inj) (10/08/17 18:30) Ed Discharge Order (10/08/17 18:51) Labs Laboratory Tests Test 10/08/17 14:15 White Blood Count 10.2 TH/MM3 Red Blood Count 5.63 MIL/MM3 Hemoglobin 16.5 GM/DL Hematocrit 49.2 % Mean Corpuscular Volume 87.4 FL Mean Corpuscular Hemoglobin 29.2 PG Mean Corpuscular Hemoglobin Concent 33.4 % Red Cell Distribution Width 14.2 % Platelet Count 310 TH/MM3 Mean Platelet Volume 8.0 FL Neutrophils (%) (Auto) 68.5 % Lymphocytes (%) (Auto) 23.0 % Monocytes (%) (Auto) 6.7 % Eosinophils (%) (Auto) 0.7 % Basophils (%) (Auto) 1.1 % Neutrophils # (Auto) 7.0 TH/MM3 Lymphocytes # (Auto) 2.3 TH/MM3 Monocytes # (Auto) 0.7 TH/MM3 Eosinophils # (Auto) 0.1 TH/MM3 Basophils # (Auto) 0.1 TH/MM3 CBC Comment DIFF FINAL Differential Comment Urine Color YELLOW Urine Turbidity CLEAR Urine pH 5.5 Urine Specific [place] 1.040 Urine Protein 100 mg/dL Urine Glucose (UA) 1000 mg/dL Urine Ketones 40 mg/dL Urine Occult Blood NEG Urine Nitrite NEG Urine Bilirubin NEG Urine Urobilinogen LESS THAN 2.0 MG/DL Urine Leukocyte Esterase NEG Urine WBC 1 /hpf Urine Mucus FEW /lpf Microscopic Urinalysis Comment CULT NOT INDICATED Blood Urea Nitrogen 17 MG/DL Creatinine 1.15 MG/DL Random Glucose 368 MG/DL Total Protein 8.7 GM/DL Albumin 4.2 GM/DL Calcium Level 9.5 MG/DL Alkaline Phosphatase 173 U/L Aspartate Amino Transf (AST/SGOT) 9 U/L Alanine Aminotransferase (ALT/SGPT) 29 U/L Total Bilirubin 0.7 MG/DL Sodium Level 136 MEQ/L Potassium Level 4.2 MEQ/L Chloride Level 100 MEQ/L Carbon Dioxide Level 23.7 MEQ/L Anion Gap 12 MEQ/L Estimat Glomerular Filtration Rate 65 ML/MIN Lipase 140 U/L [facility] Medical Decision Making Medical Screen Exam Complete: Yes Emergency Medical Condition: Yes Medical Record Reviewed: Yes Differential Diagnosis Abdominal pain, diabetes, hyperglycemia, chronic pain, withdrawal, C. difficile Narrative Course 57-year-old male presents to the emergency room for evaluation of hyperglycemia and abdominal pain, nausea, vomiting, and diarrhea for the past 5 days. Patient has chronic abdominal pain but states it has worsened over the past 5 days. States he was forced to come by his home health nurse. He did not want to be here. Of note, he has not had his methadone in 5 days. Physical exam is reassuring. Patient resting comfortably in bed. His abdomen is diffusely tender. Seems less painful when distracted. IV access established and basic labs obtained. CBC is completely unremarkable. CMP is only remarkable for elevated glucose. UA shows no signs of infection. He was given 8 units of subcutaneous insulin and his blood sugar increased. He was then given 8 units of IV insulin and something for pain. I initially suspected C. difficile given her history of abdominal pain and frequent diarrhea after recent antibiotics the patient was unable to provide a stool sample. It was then revealed that he has not had methadone in 5 days and I suspect he is withdrawing. I had my attending physician, Dr. Carbone, evaluate the patient and he agrees patient is stable for outpatient follow-up. He was encouraged to follow up with his primary care physician for management of chronic pain. Diagnosis Primary Impression: Hyperglycemia Additional Impression: Abdominal pain Qualified Codes: R10.84 - Generalized abdominal pain Referrals: Primary Care Physician Additional Instructions: Please take medications as prescribed. Eat low sugar, low carb foods. Follow-up with primary care physician for chronic abdominal pain. Scripts Promethazine (Phenergan) 25 Mg Tablet 25 MG PO ONCE for Nausea/Vomiting, #8 TAB 0 Refills Prov: Pablito Carbone MD 10/08/17 Disposition: 01 DISCHARGE HOME Condition: Stable Promise Lara Oct 08, 2017 17:24
[2017-10-08 18:30] VITALS: BP 173/100; PULSE 81; RESP 18; O2SAT 98
[2017-10-08] MEDS ORDERED: MORPHINE SULFATE 4 MG/ML INJ IV PUSH ONE (18:30)
[2017-10-08] MEDS ORDERED: INSULIN HUMAN REGULAR 1,000 UNITS/10 ML VIAL IV PUSH ONE (18:30)
[2017-10-08 18:45] VITALS: RESP 18
[2017-10-08] MEDS ORDERED: PROM25TA10 PO (19:11)
== END 2017-10-08 19:53 | disposition home or self-care (01) ==
LOC: NEPC 13:51
DX: E11.65 Type 2 diabetes mellitus with hyperglycemia (principal); G89.29 Other chronic pain; I10 Essential (primary) hypertension; F90.9 Attention-deficit hyperactivity disorder, unspecified type; F17.200 Nicotine dependence, unspecified, uncomplicated; Z79.4 Long term (current) use of insulin
CPT/HCPCS: 80053; 81001; 83690; 85025; 96372; 96374; 96375; 99284; J1815; J2270